=== PATIENT | male | born 1945 | race Two or more races ===

== ENCOUNTER 2023-08-28 02:06 | Inpatient (IN) | payer MEDICARE, OTHER ==
[~2023-08-28] VITALS: Ht 175.3 cm; Wt 94.8 kg
[2023-08-29] MEDS ORDERED: ATOR40TA PO (02:47)
[2023-08-29] MEDS ORDERED: DIPH-1062 PO (02:49)
[2023-08-29] MEDS ORDERED: CLOP75TA15 PO (02:49)
[2023-08-29] MEDS ORDERED: CARV6.252 PO (02:50)
[2023-08-29] MEDS ORDERED: DONE10TA44 PO (02:51)
[2023-08-29] MEDS: BLOOD SUGAR DIAGNOSTIC 1 EACH STRIP IN ONE (02:55)
[2023-08-29] MEDS ORDERED: FERR160T11 PO (02:55)
[2023-08-29] MEDS ORDERED: FLUO20CA42 PO (02:56)
[2023-08-29] MEDS ORDERED: GLIP5TAB13 PO (02:57)
[2023-08-29] MEDS ORDERED: MEMA10TA PO (02:58)
[2023-08-29] MEDS ORDERED: ISOS30TA86 PO (02:58)
[2023-08-29] MEDS ORDERED: MAGNESIUM HYDROXIDE 30 ML UDC PO PRN (03:00)
[2023-08-29] MEDS ORDERED: FAMO-131 PO (03:00)
[2023-08-29] MEDS ORDERED: ACETAMINOPHEN 325 MG TABLET PO PRN (03:00)
[2023-08-29] MEDS ORDERED: LORAZEPAM 1 MG TABLET PO PRN (03:00)
[2023-08-29] MEDS ORDERED: NITR0.4T48 SL (03:00)
[2023-08-29] MEDS ORDERED: MAG HYDROX/AL HYDROX/SIMETH 30 ML UDC PO PRN (03:00)
[2023-08-29] MEDS ORDERED: QUET25TA PO (03:01)
[2023-08-29] MEDS ORDERED: PANT40TA2 PO (03:01)
[2023-08-29] MEDS ORDERED: SUCR1TAB PO (03:02)
[2023-08-29] MEDS ORDERED: TAMS-12 PO (03:06)
[2023-08-29] MEDS ORDERED: FINA5TAB11 PO (03:06)
[2023-08-29] MEDS ORDERED: INSU100I26 SQ (03:07)
[2023-08-29] MEDS ORDERED: INSU100V39 SQ (03:08)
[2023-08-29] MEDS ORDERED: OXYC5CAP18 PO (03:17)
[2023-08-29] MEDS ORDERED: NITROGLYCERIN 0.4 MG/TAB BOTTLE SL PRN (03:30)
[2023-08-29] MEDS ORDERED: DEXTROSE 50%-WATER 50 ML DISP.SYRIN IV PRN (03:30)
[2023-08-29] MEDS: BLOOD SUGAR DIAGNOSTIC 1 EACH STRIP IN SCH (07:38)
[2023-08-29] MEDS: GLUCERNA SHAKE 237 ML CAN PO SCH (08:05)
[2023-08-29 08:07] VITALS: BP 161/73; TEMP 98; O2SAT 100
[2023-08-29] MEDS: SUCRALFATE 1 G TABLET PO SCH (08:08)
[2023-08-29] MEDS: FINASTERIDE (5 MG) 5 MG TABLET PO SCH (09:00)
[2023-08-29] MEDS: MEMANTINE HCL 5 MG TABLET PO SCH ×2 (09:00)
[2023-08-29] MEDS: FAMOTIDINE (20 MG) 20 MG TABLET PO SCH (09:00)
[2023-08-29] MEDS: glipiZIDE 5 MG TABLET PO SCH (09:00)
[2023-08-29] MEDS: QUETIAPINE FUMARATE 25 MG TABLET PO SCH (09:00)
[2023-08-29] MEDS: CLOPIDOGREL BISULFATE 75 MG TABLET PO SCH (09:00)
[2023-08-29] MEDS: CARVEDILOL 6.25 MG TABLET PO SCH (09:00)
[2023-08-29] MEDS: DIVALPROEX SODIUM 125 MG CAP.SPRINK PO SCH (09:00)
[2023-08-29] MEDS: PANTOPRAZOLE 40 MG TABLET.DR PO SCH (09:00)
[2023-08-29] MEDS: INSULIN GLARGINE, 100 UNIT/ML CARTRIDGE SQ SCH (09:00)
[2023-08-29] MEDS: ISOSORBIDE MONONITRATE (30MG) 30 MG TAB.SR.24H PO SCH (09:00)
[2023-08-29] MEDS: OLANZAPINE 10 MG VIAL IM ONE (11:02)
[2023-08-29 16:00] VITALS: BP 118/84; TEMP 97.9; O2SAT 100
[2023-08-29] MEDS: INSULIN REGULAR, HUMAN 100 UNIT/ML 3 ML VIAL SQ PRN (17:13)
[2023-08-29 20:00] VITALS: BP 168/87; TEMP 98.2; O2SAT 97
[2023-08-29] MEDS: TAMSULOSIN 0.4 MG CAP.SR.24H PO SCH (21:39)
[2023-08-29] MEDS: ATORVASTATIN 40 MG TABLET PO SCH (21:39)
[2023-08-30 06:56] LABS: BASOPHILS # (AUTO) 0.1 K/uL (0.0-0.2); BASOPHILS % (AUTO) 0.8 % (0.0-2.0); EOSINOPHILS # (AUTO) 0.4 K/uL (0.0-0.7); HEMATOCRIT 36 % (39-51); HEMOGLOBIN 12.3 g/dL (13.5-17.5); LYMPHOCYTES # (AUTO) 2.7 K/uL (0.8-4.8); LYMPHOCYTES % (AUTO) 36.6 % (20.0-44.0); MEAN CORPUSCULAR HEMOGLOBIN 30 PG (26.0-33.0); MEAN CORPUSCULAR HGB CONC 34 g/dl (31.0-36.0); MEAN CORPUSCULAR VOLUME 87 fL (80-96); MONOCYTES # (AUTO) 0.6 K/uL (0.1-1.30); MONOCYTES % (AUTO) 8.4 % (2.0-12.0); NEUTROPHILS # (AUTO) 3.6 K/uL (1.8-8.9); NEUTROPHILS % (AUTO) 49.2 % (43.0-81.0); PLATELET COUNT (AUTO) 208 K/uL (150-450); RED BLOOD CELL COUNT(AUTO) 4.15 MIL/uL (4.5-6.0); RED CELL DISTRIBUTION WIDTH 14.9 % (11.5-15.0); WHITE BLOOD COUNT (AUTO) 7.3 K/uL (4.3-11.0)
[2023-08-30 07:29] LABS: CALCIUM, SERUM 9.4 mg/dL (8.5-10.1); CARBON DIOXIDE 24 mmol/L (21-32); CHLORIDE 108 mmol/L (98-107); CREATININE 1.8 mg/dL (0.6-1.3); GLUCOSE 129 mg/dL (74-106); POTASSIUM 3.6 mmol/L (3.5-5.1); SODIUM SERUM 143 mmol/L (136-145); UREA NITROGEN, BLOOD 27 mg/dL (7-18)
[2023-08-30 07:42] LABS: CHOLESTEROL 140 mg/dL (<200); HDL CHOLESTEROL 36 mg/dL (40-60); LDL 80 mg/dL (0-99); TRIGLYCERIDES 150 mg/dL (30-150)
[2023-08-30 08:00] VITALS: BP 156/91; TEMP 98; O2SAT 99
[2023-08-30] MEDS: OLANZAPINE 10 MG VIAL IM ONE (10:15)
[2023-08-30 16:00] VITALS: BP 141/71; TEMP 97.8; O2SAT 98
[2023-08-30 21:07] VITALS: BP 148/100; TEMP 98; O2SAT 100
[2023-08-30 22:30] VITALS: BP 139/88; TEMP 98; O2SAT 98
[2023-08-30] MEDS: ZOLPIDEM TARTRATE 5 MG TABLET PO PRN (22:33)
[2023-08-31 08:00] VITALS: BP 124/79; TEMP 98.7; O2SAT 98
[2023-08-31] MEDS: FERROUS SULFATE (325 MG) 325 MG/TAB TABLET PO SCH (08:45)
[2023-08-31 16:00] VITALS: BP 123/78; TEMP 98.7; O2SAT 98
[2023-08-31 20:17] VITALS: BP 138/83; TEMP 98.7; O2SAT 100
[2023-09-01 08:00] VITALS: BP 155/89; TEMP 97.8; O2SAT 96
[2023-09-01] MEDS: oxyCODONE IR immediate release 5 MG TABLET PO PRN (13:53)
[2023-09-01 15:53] VITALS: BP 123/71; TEMP 97.7; O2SAT 96
[2023-09-01 20:00] VITALS: BP 122/69; TEMP 97.9; O2SAT 98
[2023-09-02 07:29] LABS: CALCIUM, SERUM 9.5 mg/dL (8.5-10.1); CARBON DIOXIDE 25 mmol/L (21-32); CHLORIDE 106 mmol/L (98-107); GLUCOSE 120 mg/dL (74-106); POTASSIUM 3.7 mmol/L (3.5-5.1); SODIUM SERUM 139 mmol/L (136-145); UREA NITROGEN, BLOOD 41 mg/dL (7-18)
[2023-09-02 08:00] VITALS: BP 147/76; TEMP 98.7; O2SAT 97
[2023-09-02] MEDS: OLANZAPINE 10 MG VIAL IM ONE ×2 (09:44→15:21)
[2023-09-03 07:12] LABS: CALCIUM, SERUM 8.7 mg/dL (8.5-10.1); CARBON DIOXIDE 25 mmol/L (21-32); CHLORIDE 106 mmol/L (98-107); CREATININE 1.9 mg/dL (0.6-1.3); GLUCOSE 120 mg/dL (74-106); POTASSIUM 3.6 mmol/L (3.5-5.1); SODIUM SERUM 140 mmol/L (136-145); UREA NITROGEN, BLOOD 40 mg/dL (7-18)
[2023-09-03] MEDS: OLANZAPINE 10 MG VIAL IM ONE (08:44)
[2023-09-03 16:00] VITALS: BP 146/92; TEMP 98.1; O2SAT 94
[2023-09-03 20:00] VITALS: BP 123/81; TEMP 98.4; O2SAT 97
[2023-09-04 08:00] VITALS: BP 136/72; TEMP 97.8; O2SAT 98
[2023-09-04] MEDS: OLANZAPINE 10 MG VIAL IM ONE (08:47)
[2023-09-04 16:00] VITALS: BP 139/71; TEMP 97.6; O2SAT 99
[2023-09-04] MEDS: OLANZAPINE 5 MG TABLET PO SCH (17:02)
[2023-09-04 20:00] VITALS: BP 134/75; TEMP 97.7; O2SAT 99
[2023-09-05] MEDS: hydrOXYzine PAMOATE 25 MG CAPSULE PO PRN (04:55)
[2023-09-05 08:00] VITALS: BP 137/88; TEMP 97.7; O2SAT 100
[2023-09-05 16:00] VITALS: BP 130/79; TEMP 97.9; O2SAT 99
[2023-09-05] MEDS: OLANZAPINE 10 MG VIAL IM ONE (19:55)
[2023-09-05] MEDS: diphenhydrAMINE HCL 50 MG/ML VIAL IM ONE (19:55)
[2023-09-05 20:00] VITALS: BP 114/76; TEMP 98.3; O2SAT 99
[2023-09-05 23:02] LABS: CALCIUM, SERUM 9.3 mg/dL (8.5-10.1); CARBON DIOXIDE 22 mmol/L (21-32); CHLORIDE 104 mmol/L (98-107); CREATININE 2.2 mg/dL (0.6-1.3); GLUCOSE 123 mg/dL (74-106); POTASSIUM 4.1 mmol/L (3.5-5.1); SODIUM SERUM 141 mmol/L (136-145); UREA NITROGEN, BLOOD 45 mg/dL (7-18)
[2023-09-06 07:44] LABS: CALCIUM, SERUM 9.7 mg/dL (8.5-10.1); CARBON DIOXIDE 23 mmol/L (21-32); CHLORIDE 102 mmol/L (98-107); GLUCOSE 132 mg/dL (74-106); POTASSIUM 3.8 mmol/L (3.5-5.1); SODIUM SERUM 139 mmol/L (136-145); UREA NITROGEN, BLOOD 44 mg/dL (7-18)
[2023-09-06 08:00] VITALS: BP 130/73; TEMP 97.9; O2SAT 98
[2023-09-06] MEDS: OLANZAPINE 5 MG TABLET PO SCH (13:06)
[2023-09-06 16:00] VITALS: BP 104/52; TEMP 97.5; O2SAT 97
[2023-09-06 20:01] VITALS: BP 116/69; TEMP 97.7; O2SAT 99
[2023-09-07 08:00] VITALS: BP 155/70; TEMP 98.7; O2SAT 100
[2023-09-07] MEDS: diphenhydrAMINE HCL 50 MG/ML VIAL IM ONE (09:15)
[2023-09-07] MEDS: HALOPERIDOL LACTATE INJ 5 MG/ML VIAL IM ONE (09:15)
[2023-09-07 16:00] VITALS: BP 134/88; TEMP 98; O2SAT 99
[2023-09-07 20:36] VITALS: BP 120/80; TEMP 98.2; O2SAT 99
[2023-09-08 08:00] VITALS: BP 123/55; TEMP 97.9; O2SAT 96
[2023-09-08] MEDS: DIVALPROEX SODIUM 125 MG CAP.SPRINK PO SCH (09:32)
[2023-09-08 16:00] VITALS: BP 114/65; TEMP 98.6; O2SAT 97
[2023-09-08 20:23] VITALS: BP 119/74; TEMP 98.4; O2SAT 99
[2023-09-09 08:00] VITALS: BP 104/78; TEMP 98.7; O2SAT 99
[2023-09-09] MEDS: HALOPERIDOL 5 MG TABLET PO SCH (09:57)
[2023-09-09] MEDS: BENZTROPINE MESYLATE (1 MG) 1 MG TABLET PO SCH (09:58)
[2023-09-09 16:00] VITALS: BP 122/48; TEMP 97.7; O2SAT 97
[2023-09-09 20:00] VITALS: BP 118/57; TEMP 98; O2SAT 96
[2023-09-10 08:00] VITALS: BP 120/60; TEMP 97.9; O2SAT 98
[2023-09-10 16:00] VITALS: BP 122/67; TEMP 98; O2SAT 96
[2023-09-10 20:00] VITALS: BP 136/68; TEMP 98.4; O2SAT 96
[2023-09-11 08:00] VITALS: BP 120/62; TEMP 98; O2SAT 100
[2023-09-11 16:00] VITALS: BP 145/81; TEMP 98.2; O2SAT 100
[2023-09-11 20:00] VITALS: BP 145/86; TEMP 98.4; O2SAT 98
[2023-09-11 20:20] VITALS: BP 145/86; TEMP 98.2; O2SAT 97
[2023-09-12 07:06] LABS: BASOPHILS % (AUTO) 0.6 % (0.0-2.0); EOSINOPHILS # (AUTO) 0.4 K/uL (0.0-0.7); EOSINOPHILS % (AUTO) 5.3 % (0.0-6.0); HEMATOCRIT 38 % (39-51); HEMOGLOBIN 12.7 g/dL (13.5-17.5); LYMPHOCYTES # (AUTO) 2.5 K/uL (0.8-4.8); LYMPHOCYTES % (AUTO) 32.4 % (20.0-44.0); MEAN CORPUSCULAR HEMOGLOBIN 30 PG (26.0-33.0); MEAN CORPUSCULAR HGB CONC 34 g/dl (31.0-36.0); MEAN CORPUSCULAR VOLUME 89 fL (80-96); MONOCYTES # (AUTO) 0.8 K/uL (0.1-1.30); NEUTROPHILS % (AUTO) 51.7 % (43.0-81.0); PLATELET COUNT (AUTO) 224 K/uL (150-450); RED BLOOD CELL COUNT(AUTO) 4.29 MIL/uL (4.5-6.0); WHITE BLOOD COUNT (AUTO) 7.7 K/uL (4.3-11.0)
[2023-09-12 07:22] LABS: CALCIUM, SERUM 9.6 mg/dL (8.5-10.1); CARBON DIOXIDE 23 mmol/L (21-32); CHLORIDE 103 mmol/L (98-107); CREATININE 1.7 mg/dL (0.6-1.3); GLUCOSE 132 mg/dL (74-106); MAGNESIUM 2.8 mg/dL (1.8-2.4); PHOSPHORUS 3.8 mg/dL (2.5-4.9); POTASSIUM 4.1 mmol/L (3.5-5.1); SODIUM SERUM 139 mmol/L (136-145); UREA NITROGEN, BLOOD 40 mg/dL (7-18)
[2023-09-12 08:00] VITALS: BP 119/59; TEMP 98.6; O2SAT 99
[2023-09-12 16:00] VITALS: BP 111/76; TEMP 97.9; O2SAT 99
[2023-09-12 21:04] VITALS: BP 152/84; TEMP 97.9; O2SAT 100
[2023-09-13 07:16] LABS: BASOPHILS % (AUTO) 0.6 % (0.0-2.0); EOSINOPHILS # (AUTO) 0.3 K/uL (0.0-0.7); EOSINOPHILS % (AUTO) 4.2 % (0.0-6.0); HEMATOCRIT 38 % (39-51); HEMOGLOBIN 12.5 g/dL (13.5-17.5); LYMPHOCYTES # (AUTO) 1.8 K/uL (0.8-4.8); LYMPHOCYTES % (AUTO) 27.3 % (20.0-44.0); MEAN CORPUSCULAR HEMOGLOBIN 29 PG (26.0-33.0); MEAN CORPUSCULAR HGB CONC 33 g/dl (31.0-36.0); MEAN CORPUSCULAR VOLUME 89 fL (80-96); MONOCYTES # (AUTO) 0.8 K/uL (0.1-1.30); MONOCYTES % (AUTO) 11.4 % (2.0-12.0); NEUTROPHILS # (AUTO) 3.8 K/uL (1.8-8.9); NEUTROPHILS % (AUTO) 56.5 % (43.0-81.0); PLATELET COUNT (AUTO) 205 K/uL (150-450); RED BLOOD CELL COUNT(AUTO) 4.26 MIL/uL (4.5-6.0); RED CELL DISTRIBUTION WIDTH 14.9 % (11.5-15.0); WHITE BLOOD COUNT (AUTO) 6.6 K/uL (4.3-11.0)
[2023-09-13 07:38] LABS: CALCIUM, SERUM 8.7 mg/dL (8.5-10.1); CARBON DIOXIDE 29 mmol/L (21-32); CHLORIDE 103 mmol/L (98-107); CREATININE 1.7 mg/dL (0.6-1.3); GLUCOSE 115 mg/dL (74-106); MAGNESIUM 2.2 mg/dL (1.8-2.4); PHOSPHORUS 3.7 mg/dL (2.5-4.9); SODIUM SERUM 139 mmol/L (136-145); UREA NITROGEN, BLOOD 33 mg/dL (7-18)
[2023-09-13 08:16] VITALS: BP 120/61; TEMP 98.2; O2SAT 98
[2023-09-13 15:52] VITALS: BP 148/131; TEMP 98.1; O2SAT 98
[2023-09-13 20:00] VITALS: BP 124/77; TEMP 98.1; O2SAT 100
[2023-09-13 20:19] VITALS: BP 124/77; TEMP 98.1; O2SAT 100
[2023-09-14 08:00] VITALS: BP 143/83; TEMP 97.7; O2SAT 97
[2023-09-14 08:06] VITALS: BP 143/83
== END 2023-09-14 14:29 | disposition home or self-care (01) | DRG 885 ==
LOC: GPS 08-29 02:06
PROVIDERS: ADMIT Psychiatry & Neurology Psychiatry; ATTEND Nurse Practitioner Acute Care
DX: F39 Unspecified mood [affective] disorder (principal); N18.9 Chronic kidney disease, unspecified; N17.0 Acute kidney failure with tubular necrosis; F03.911 Unspecified dementia, unspecified severity, with agitation; F03.92 Unspecified dementia, unspecified severity, with psychotic disturbance; F03.93 Unspecified dementia, unspecified severity, with mood disturbance; F29 Unspecified psychosis not due to a substance or known physiological condition; I25.10 Atherosclerotic heart disease of native coronary artery without angina pectoris; K21.9 Gastro-esophageal reflux disease without esophagitis; N40.0 Benign prostatic hyperplasia without lower urinary tract symptoms; G89.4 Chronic pain syndrome; E78.5 Hyperlipidemia, unspecified; E11.22 Type 2 diabetes mellitus with diabetic chronic kidney disease; I12.9 Hypertensive chronic kidney disease with stage 1 through stage 4 chronic kidney disease, or unspecified chronic kidney disease; D63.1 Anemia in chronic kidney disease; Z79.899 Other long term (current) drug therapy; R45.1 Restlessness and agitation; Z79.4 Long term (current) use of insulin; Z79.84 Long term (current) use of oral hypoglycemic drugs; Z79.02 Long term (current) use of antithrombotics/antiplatelets
CPT/HCPCS: 36415; 70450-TC; 80048-TC; 80061-TC; 80164-TC; 82962-TC; 83735-TC; 84100-TC; 85025-TC; 87081-TC; 97116-TC; 97530-TC; J1200; J1630; J1815; J3490; Q0177